=== PATIENT | female | born 1965 | race Caucasian/White ===

== ENCOUNTER → 2016-06-04 | Day surgery (SDC) | payer OTHER ==
[~2016-06-04] VITALS: Ht 144.8 cm; Wt 56.2 kg
[2016-06-04 07:42] VITALS: BP 106/69
== END | disposition home or self-care (01) ==
LOC: GI 07:42 → OR 08:00 → GI 08:00
PROVIDERS: Internal Medicine Gastroenterology
PROC: 0D20XUZ Change Feeding Device in Upper Intestinal Tract, External Approach (ICD-10-PCS; principal; 2016-06-04 08:00)
DX: Z43.1 Encounter for attention to gastrostomy (principal); K21.9 Gastro-esophageal reflux disease without esophagitis; G80.9 Cerebral palsy, unspecified; Q90.9 Down syndrome, unspecified; Z99.3 Dependence on wheelchair; Z93.0 Tracheostomy status
CPT/HCPCS: 43760